=== PATIENT | female | born 1955 | race Caucasian/White ===

== ENCOUNTER 2022-07-09 22:33 | Emergency (ER) | payer BC ==
[~2022-07-09] VITALS: Ht 154.9 cm; Wt 58.5 kg
--- NOTE | 2022-07-09 22:53 | NUR ---
BRYAN C/O RIGHT ABD/PELVIC PAIN STARTED TONIGHT AROUND 1800 UNPROVOKED NONRADIATING -N/V/D. CHANGED INTO GOWN AND PLACED ON MONITOR AND V/S WNL.
--- NOTE | 2022-07-09 22:57 | NUR ---
20G IV ESTABLISHED AT [facility]. BLOOD DRAWN AND SENT TO LAB
--- NOTE | 2022-07-09 23:17 | NUR ---
PT RETURNED FROM CT
[2022-07-09 23:22] LABS: BASOPHILS % (AUTO) 0.4 % (0.0-2.0); EOSINOPHILS % (AUTO) 0.8 % (0.0-6.0); HEMATOCRIT 41 % (33-45); HEMOGLOBIN 13.6 g/dL (11.5-14.8); MEAN CORPUSCULAR HGB CONC 33 g/dl (31.0-36.0); MEAN CORPUSCULAR VOLUME 92 fL (82-100); MONOCYTES # (AUTO) 0.3 K/uL (0.1-1.30); MONOCYTES % (AUTO) 6.6 % (2.0-12.0); NEUTROPHILS # (AUTO) 2.2 K/uL (1.8-8.9); NEUTROPHILS % (AUTO) 48.2 % (43.0-81.0); PLATELET COUNT (AUTO) 198 K/uL (150-450); RED BLOOD CELL COUNT(AUTO) 4.47 MIL/uL (4.0-5.2); WHITE BLOOD COUNT (AUTO) 4.6 K/uL (4.3-11.0)
[2022-07-09 23:30] LABS: CALCIUM, SERUM 9.1 mg/dL (8.5-10.1); CREATININE 0.8 mg/dL (0.6-1.3); POTASSIUM 3.7 mmol/L (3.5-5.1)
--- NOTE | 2022-07-10 01:50 | NUR ---
Patient discharged to home in stable condition. Written and verbal after care instructions given. Patient verbalizes understanding of instruction.IV removed. Catheter intact and site benign. Pressure and 4x4 applied to site. No bleeding noted.
[2022-07-10 02:05] VITALS: BP 114/76
== END 2022-07-10 01:55 | disposition home or self-care (01) ==
LOC: ER 22:37
DX: R10.31 Right lower quadrant pain (principal)
CPT/HCPCS: 36415; 80048-TC; 85025-TC